=== PATIENT | female | born 1970 | race Caucasian/White ===

== ENCOUNTER 2018-01-08 21:17 | Emergency (ER) | payer BC ==
[2018-01-08 21:27] VITALS: RESP 16; TEMP 98.3
[2018-01-08 21:53] VITALS: BP 129/85; PULSE 70; O2SAT 99
== END 2018-01-08 21:53 | disposition home or self-care (01) ==
LOC: ED 21:17
DX: S93.402A Sprain of unspecified ligament of left ankle, initial encounter (principal)
CPT/HCPCS: 73600; 99282